=== PATIENT | female | born 1995 | race Caucasian/White ===

== ENCOUNTER → 2020-10-25 | Outpatient (CLI) | payer OTHER ==
--- NOTE | 2020-10-25 13:10 | REP ---
INDICATION: R10.2 PELVIC PAIN. COMPARISON: None. TECHNIQUE: Transabdominal and transvaginal scanning performed. FINDINGS: Uterine dimensions are 8.9 x 4.3 x 4.4 cm. Endometrial echo is 5 mm in AP dimension and centrally placed. IUD is seen in the endometrial canal. The bladder measures 11.0 x 7.5 x 8.9 cm. The right ovary has dimensions of 4.7 x 2.6 x 3.4 cm. The left ovary dimensions are 2.7 x 1.9 x 2.4 cm. Blood flow is seen in each ovary with duplex Doppler evaluation, with no torsion. A dominant follicle is noted in the right ovary 2.4 cm in diameter. There is mild free fluid surrounding the right ovary. IMPRESSION: Dominant follicle right ovary 2.4 cm in diameter with mild adjacent free fluid. No other significant finding. <Electronically signed by Newton Watson > 10/25/20 [id number]
== END ==
LOC: M WHC 11:24
PROVIDERS: ATTEND Nurse Practitioner Family
DX: R10.2 Pelvic and perineal pain (principal)

== ENCOUNTER → 2020-12-06 | Outpatient (REF) | payer OTHER ==
[2020-12-07 15:15] LABS: CHLAMYDIA DNA AMPLIFICATION NEGATIVE (NEGATIVE); GC DNA AMPLIFICATION NEGATIVE (NEGATIVE)
== END ==
LOC: M SFHCWAGY 09:50
PROVIDERS: ATTEND Nurse Practitioner Women's Health
DX: Z11.3 Encounter for screening for infections with a predominantly sexual mode of transmission (principal)
CPT/HCPCS: 81002; 87491; 87591; G0463